=== PATIENT | male | born 1950 | race Caucasian/White ===

== ENCOUNTER 2016-10-31 20:29 | Inpatient (IN) | payer OTHER ==
[~2016-10-31] VITALS: Ht 177.8 cm; Wt 90.5 kg
[2016-10-31 21:02] LABS: EOSINOPHIL (%) 0 % (0-5); HEMATOCRIT 29.9 % (38.0-50.0); IMMATURE GRANULOCYTE (%) 0.4 % (0.0-0.7); INSTRUMENT ABS NEUTROPHIL CT 8.7 K/uL; LYMPHOCYTE COUNT 0.3 K/uL (1.0-2.8); MCH 27.4 PG (29.0-34.0); MCHC 30.1 G/DL (30.0-36.0); MCV 90.9 FL (86-99); MEAN PLAT.VOLUME 11.9 uM^3 (9.0-12.4); MONOCYTE (%) 10.1 % (3-12); NEUTROPHIL (%) 86.8 % (45-76); NEUTROPHIL COUNT 8.7 K/uL (1.8-6.4); PLATELET COUNT 216 K/uL (156-360); RBC DIS.WIDTH-CV 13.9 % (11.8-14.6); RBC DIS.WIDTH-SD 46.8 % (39-53); RED BLOOD COUNT 3.29 M/uL (4.00-5.50); WHITE BLOOD COUNT 10.1 K/uL (4.1-10.2)
[2016-10-31 21:08] LABS: CARBON DIOXIDE (BICARBONATE) 22.4 MEQ/L (20-31)
[2016-10-31 21:14] LABS: CHLORIDE 95 mEq/L (99-109); POTASSIUM 3.7 mEq/L (3.7-5.4); SODIUM 132 mEq/L (136-147)
[2016-10-31 21:17] LABS: ANION GAP 18 MEQ/L (2-14)
[2016-10-31 21:18] LABS: TOTAL BILIRUBIN 0.4 mg/dL (0.0-1.0)
[2016-10-31 21:19] LABS: ALKALINE PHOSPHATASE 119 IU/L (3-129)
[2016-10-31 21:20] LABS: GFR ESTIMATE (CALCULATED) 9 mL/min/
[2016-10-31 21:21] LABS: UREA NITROGEN (BUN) 81 mg/dL (9-23)
[2016-10-31 21:31] LABS: TROP-I INTERPRETATION POSITIVE
[2016-10-31 21:48] LABS: GLUCOSE 1280 mg/dL (70-99)
[2016-10-31] MEDS ORDERED: NOVOLIN,HU100 UNITS1 SC (22:25)
[2016-10-31] MEDS ORDERED: LANTUS 10100 UNITS/ SC (22:26)
[2016-10-31 22:33] LABS: Estimated Average Glucose 361 mg/dL (70-123); HEMOGLOBIN A1c (GLYCOHEMOGLOB) 14.2 % HGB (Below 5.7)
[2016-10-31 23:15] VITALS: BP 139/77
[2016-10-31 23:30] VITALS: BP 125/56
[2016-11-01] VITALS (17 sets, daily range): BP systolic 94–161; BP diastolic 64–104
[2016-11-01 00:25] LABS: CHLORIDE 100 mEq/L (99-109); POTASSIUM 3.6 mEq/L (3.7-5.4); SODIUM 136 mEq/L (136-147)
[2016-11-01 00:28] LABS: ANION GAP 17 MEQ/L (2-14)
[2016-11-01 00:31] LABS: GFR ESTIMATE (CALCULATED) 10 mL/min/; UREA NITROGEN (BUN) 80 mg/dL (9-23)
[2016-11-01 00:34] LABS: INFLUENZA A VIRAL ANTIGEN NEGATIVE; INFLUENZA B VIRAL ANTIGEN NEGATIVE
[2016-11-01 00:41] LABS: CARBON DIOXIDE (BICARBONATE) 23.1 MEQ/L (20-31)
[2016-11-01 00:56] LABS: HEMATOCRIT 27.2 % (38.0-50.0); MCH 27.7 PG (29.0-34.0); MCHC 31.3 G/DL (30.0-36.0); MCV 88.6 FL (86-99); MEAN PLAT.VOLUME 11.7 uM^3 (9.0-12.4); PLATELET COUNT 178 K/uL (156-360); RBC DIS.WIDTH-CV 13.9 % (11.8-14.6); RBC DIS.WIDTH-SD 44.9 % (39-53); RED BLOOD COUNT 3.07 M/uL (4.00-5.50); WHITE BLOOD COUNT 10.4 K/uL (4.1-10.2)
[2016-11-01 01:18] LABS: GLUCOSE 1152 mg/dL (70-99)
[2016-11-01 01:30] LABS: METH RESISTANT S AUREUS PCR NEGATIVE (NEGATIVE)
[2016-11-01 01:31] LABS: PROBE CHECK PASS; SPECIMEN PROCESSING CONTROL PASS
[2016-11-01 01:32] LABS: CHLORIDE 102 mEq/L (99-109); POTASSIUM 3.1 mEq/L (3.7-5.4); SODIUM 137 mEq/L (136-147)
[2016-11-01 01:36] LABS: ANION GAP 17 MEQ/L (2-14)
[2016-11-01 01:38] LABS: ALKALINE PHOSPHATASE 107 IU/L (3-129)
[2016-11-01 01:39] LABS: GFR ESTIMATE (CALCULATED) 10 mL/min/; TOTAL CK 2163 IU/L (1-294)
[2016-11-01 01:40] LABS: UREA NITROGEN (BUN) 79 mg/dL (9-23)
[2016-11-01 01:47] LABS: CK-MB 13.4 ng/mL (0.0-4.9)
[2016-11-01 01:57] LABS: INTER. NORMALIZED RATIO 1.3; PROTHROMBIN TIME 13.1 (9.2-11.2); PTT 27.8 (25-32)
[2016-11-01 02:16] LABS: CREATINE KINASE 2163 IU/L (1-294)
[2016-11-01 02:17] LABS: GLUCOSE 1029 mg/dL (70-99); TOTAL BILIRUBIN 0.3 mg/dL (0.0-1.0)
[2016-11-01 03:53] LABS: AMPHETAMINES QUANT VALUE 0 NG/ML; BARBITUATES QUANT VALUE 0 NG/ML; BENZODIAZEPINES QUANT VALUE 0 NG/ML; BENZODIAZEPINES, URINE SCREEN Negative (200 ng/mL); MARIJUANA QUANT VALUE 0 NG/ML; OPIATES QUANTITATIVE VALUE 0 NG/ML; PHENCYCLIDINE QUANT VALUE 0 NG/ML
[2016-11-01 04:36] LABS: ADD MIUA? YES; BILIRUBIN NEGATIVE; BLOOD LARGE; COLOR YELLOW ((YELLOW)); GLUCOSE (STRIP) >=500; KETONES NEGATIVE; LEUKOCYTES MODERATE; NITRITE NEGATIVE; PROTEIN (STRIP) 30; SPECIFIC GRAVITY 1.011 (1.000-1.030); UROBILINOGEN 0.2 MG/DL (0.2-1.0)
[2016-11-01 04:51] LABS: BACTERIA RARE /HPF; EPITHELIAL CELLS RARE /HPF; MUCUS TRACE /LPF; UCUL ADDED? NO
[2016-11-01 05:59] LABS: ANION GAP 17 MEQ/L (2-14); CHLORIDE 106 MEQ/L (99-109); GFR ESTIMATE (CALCULATED) 12 mL/min/; SAMPLE HEMOLYSIS CHECK 0; SAMPLE ICTERIC CHECK 0; SAMPLE LIPEMIA CHECK 0; UREA NITROGEN (BUN) 69 mg/dL (9-23)
[2016-11-01 06:00] LABS: GLUCOSE 470 mg/dL (70-99); SODIUM 145 MEQ/L (136-147)
[2016-11-01 06:21] LABS: POINT-OF-CARE METER ID UU13113731
[2016-11-01 06:49] LABS: POINT-OF-CARE METER ID UU14174217
[2016-11-01 07:16] LABS: CK-MB 13.6 ng/mL (0.0-4.9)
[2016-11-01 07:19] LABS: TROP-I INTERPRETATION POSITIVE; TROPONIN-I 5.21 ng/mL (0.0-0.30)
[2016-11-01 07:37] LABS: TOTAL CK 1796 IU/L (1-294)
[2016-11-01 07:39] LABS: CREATINE KINASE 1796 IU/L (1-294)
[2016-11-01 07:47] LABS: POINT-OF-CARE METER ID UU13113803; POINT-OF-CARE USER ID 606021424
[2016-11-01 08:19] LABS: ANION GAP 15 MEQ/L (2-14); CHLORIDE 109 MEQ/L (99-109); GFR ESTIMATE (CALCULATED) 12 mL/min/; POTASSIUM 3.5 MEQ/L (3.7-5.4); SAMPLE HEMOLYSIS CHECK 0; SAMPLE ICTERIC CHECK 0; SAMPLE LIPEMIA CHECK 0; SODIUM 148 MEQ/L (136-147); UREA NITROGEN (BUN) 65 mg/dL (9-23)
[2016-11-01 08:26] LABS: POINT-OF-CARE METER ID UU14174217
[2016-11-01 08:27] LABS: GLUCOSE 145 mg/dL (70-99)
[2016-11-01 09:30] LABS: POINT-OF-CARE METER ID UU14174217
[2016-11-01 10:43] LABS: POINT-OF-CARE METER ID UU14174217
[2016-11-01 11:09] LABS: POINT-OF-CARE METER ID UU14174217
[2016-11-01 12:13] LABS: POINT-OF-CARE METER ID UU14174217
[2016-11-01 13:01] LABS: ANION GAP 13 MEQ/L (2-14); CHLORIDE 111 MEQ/L (99-109); POTASSIUM 3.6 MEQ/L (3.7-5.4); SAMPLE HEMOLYSIS CHECK 0; SAMPLE ICTERIC CHECK 0; SAMPLE LIPEMIA CHECK 0; SODIUM 147 MEQ/L (136-147)
[2016-11-01 13:07] LABS: GFR ESTIMATE (CALCULATED) 13 mL/min/; GLUCOSE 113 mg/dL (70-99); UREA NITROGEN (BUN) 66 mg/dL (9-23)
[2016-11-01 13:08] LABS: CK-MB 9.4 ng/mL (0.0-4.9)
[2016-11-01 13:10] LABS: TROP-I INTERPRETATION POSITIVE; TROPONIN-I 6.74 ng/mL (0.0-0.30)
[2016-11-01 13:29] LABS: POINT-OF-CARE METER ID UU14174217
[2016-11-01 13:53] LABS: CREATINE KINASE 1919 IU/L (1-294); TOTAL CK 1919 IU/L (1-294)
[2016-11-01 14:42] LABS: POINT-OF-CARE METER ID UU14174217
[2016-11-01 15:05] LABS: POINT-OF-CARE METER ID UU14162636; POINT-OF-CARE USER ID 606021424
[2016-11-01 16:20] LABS: ANION GAP 14 MEQ/L (2-14); CHLORIDE 110 MEQ/L (99-109); GFR ESTIMATE (CALCULATED) 13 mL/min/; POTASSIUM 3.4 MEQ/L (3.7-5.4); SAMPLE HEMOLYSIS CHECK 0; SAMPLE ICTERIC CHECK 0; SAMPLE LIPEMIA CHECK 0; SODIUM 145 MEQ/L (136-147); UREA NITROGEN (BUN) 65 mg/dL (9-23)
[2016-11-01 16:23] LABS: GLUCOSE 185 mg/dL (70-99)
[2016-11-01 16:34] LABS: POINT-OF-CARE METER ID UU14174217
[2016-11-01 17:59] LABS: POINT-OF-CARE METER ID UU14162636; POINT-OF-CARE USER ID 606021424
[2016-11-01 18:26] LABS: TROP-I INTERPRETATION POSITIVE; TROPONIN-I 5.76 ng/mL (0.0-0.30)
[2016-11-01 18:28] LABS: TOTAL CK 1439 IU/L (1-294)
[2016-11-01 18:29] LABS: CREATINE KINASE 1439 IU/L (1-294)
[2016-11-01 18:34] LABS: POINT-OF-CARE METER ID UU13113803; POINT-OF-CARE USER ID 606021424
[2016-11-01 19:03] LABS: MCH 27.7 PG (29.0-34.0); MCHC 32.8 G/DL (30.0-36.0); MCV 84.5 FL (86-99); MEAN PLAT.VOLUME 11.1 uM^3 (9.0-12.4); PLATELET COUNT 149 K/uL (156-360); RBC DIS.WIDTH-CV 13.6 % (11.8-14.6); RBC DIS.WIDTH-SD 42.3 % (39-53); RED BLOOD COUNT 2.96 M/uL (4.00-5.50); WHITE BLOOD COUNT 9.7 K/uL (4.1-10.2)
[2016-11-01 19:56] LABS: POINT-OF-CARE METER ID UU13113803
[2016-11-01 20:41] LABS: POINT-OF-CARE METER ID UU13113803
[2016-11-01 20:46] LABS: ANION GAP 12 MEQ/L (2-14); CHLORIDE 110 MEQ/L (99-109); GFR ESTIMATE (CALCULATED) 14 mL/min/; GLUCOSE 167 mg/dL (70-99); POTASSIUM 3.2 MEQ/L (3.7-5.4); SAMPLE HEMOLYSIS CHECK 0; SAMPLE ICTERIC CHECK 0; SAMPLE LIPEMIA CHECK 0; SODIUM 143 MEQ/L (136-147); UREA NITROGEN (BUN) 60 mg/dL (9-23)
[2016-11-01 21:47] LABS: POINT-OF-CARE METER ID UU13113803
[2016-11-01 22:14] LABS: POINT-OF-CARE METER ID UU13113803
[2016-11-01 23:09] LABS: POINT-OF-CARE METER ID UU13113803
[2016-11-02] VITALS (16 sets, daily range): BP systolic 106–140; BP diastolic 55–87
[2016-11-02 00:10] LABS: POINT-OF-CARE METER ID UU13113803
[2016-11-02 01:11] LABS: POINT-OF-CARE METER ID UU13113803
[2016-11-02 01:46] LABS: CHLORIDE 111 mEq/L (99-109); POTASSIUM 3.5 mEq/L (3.7-5.4); SODIUM 145 mEq/L (136-147)
[2016-11-02 01:48] LABS: GLUCOSE 135 mg/dL (70-99)
[2016-11-02 01:49] LABS: ANION GAP 13 MEQ/L (2-14); MAGNESIUM 1.4 mg/dL (1.3-2.7)
[2016-11-02 01:52] LABS: GFR ESTIMATE (CALCULATED) 13 mL/min/
[2016-11-02 01:53] LABS: UREA NITROGEN (BUN) 58 mg/dL (9-23)
[2016-11-02 01:54] LABS: TOTAL CK 1815 IU/L (1-294)
[2016-11-02 01:56] LABS: CREATINE KINASE 1815 IU/L (1-294); TROP-I INTERPRETATION POSITIVE; TROPONIN-I 6.87 ng/mL (0.0-0.30)
[2016-11-02 01:56] LABS: POINT-OF-CARE METER ID UU13113731
[2016-11-02 02:01] LABS: CK-MB 10.8 ng/mL (0.0-4.9)
[2016-11-02 03:03] LABS: POINT-OF-CARE METER ID UU13113731
[2016-11-02 05:03] LABS: HEMATOCRIT 25.4 % (38.0-50.0); MCH 27.5 PG (29.0-34.0); MCHC 32.7 G/DL (30.0-36.0); MCV 84.1 FL (86-99); MEAN PLAT.VOLUME 11.2 uM^3 (9.0-12.4); PLATELET COUNT 144 K/uL (156-360); RBC DIS.WIDTH-CV 13.5 % (11.8-14.6); RBC DIS.WIDTH-SD 41.3 % (39-53); RED BLOOD COUNT 3.02 M/uL (4.00-5.50); WHITE BLOOD COUNT 10.4 K/uL (4.1-10.2)
[2016-11-02 05:19] LABS: MAGNESIUM 1.5 mg/dL (1.3-2.7)
[2016-11-02 05:26] LABS: TOTAL CK 1526 IU/L (1-294)
[2016-11-02 05:27] LABS: CREATINE KINASE 1526 IU/L (1-294)
[2016-11-02 05:29] LABS: TROP-I INTERPRETATION POSITIVE; TROPONIN-I 6.85 ng/mL (0.0-0.30)
[2016-11-02 05:36] LABS: CK-MB 9.5 ng/mL (0.0-4.9)
[2016-11-02 05:56] LABS: CHLORIDE 113 mEq/L (99-109); POTASSIUM 3.5 mEq/L (3.7-5.4); SODIUM 145 mEq/L (136-147)
[2016-11-02 05:58] LABS: GLUCOSE 183 mg/dL (70-99)
[2016-11-02 05:59] LABS: ANION GAP 13 MEQ/L (2-14)
[2016-11-02 06:02] LABS: GFR ESTIMATE (CALCULATED) 14 mL/min/; UREA NITROGEN (BUN) 56 mg/dL (9-23)
[2016-11-02 06:06] LABS: POINT-OF-CARE METER ID UU13113731
[2016-11-02 06:30] LABS: HDL CHOLESTEROL 31 MG/DL (Desirable>=40); LDL CHOLESTEROL 48 mg/dL (Desirable<100); NON-HDL CHOLESTEROL 68 mg/dL (Desirable<160); SAMPLE HEMOLYSIS CHECK 0; SAMPLE ICTERIC CHECK 0; SAMPLE LIPEMIA CHECK 0; TOTAL CHOLESTEROL 99 mg/dL (Desirable<200); TRIGLYCERIDES 98 MG/DL (Normal: <150)
[2016-11-02 09:54] LABS: POINT-OF-CARE METER ID UU13113731
[2016-11-02 14:00] LABS: POINT-OF-CARE METER ID UU13113731
[2016-11-02 18:07] LABS: POINT-OF-CARE METER ID UU13113731
[2016-11-02 21:40] LABS: POINT-OF-CARE METER ID UU13113731
[2016-11-03] VITALS: BP 114/60
[2016-11-03 01:04] LABS: CHLORIDE 110 mEq/L (99-109); POTASSIUM 3.5 mEq/L (3.7-5.4); SODIUM 141 mEq/L (136-147)
[2016-11-03 01:06] LABS: GLUCOSE 274 mg/dL (70-99)
[2016-11-03 01:07] LABS: ANION GAP 10 MEQ/L (2-14)
[2016-11-03 01:10] LABS: GFR ESTIMATE (CALCULATED) 16 mL/min/
[2016-11-03 01:11] LABS: UREA NITROGEN (BUN) 53 mg/dL (9-23)
[2016-11-03 03:23] LABS: POINT-OF-CARE METER ID UU13113731
[2016-11-03 04:00] VITALS: BP 119/61
[2016-11-03 08:00] VITALS: BP 119/61
[2016-11-03 10:09] LABS: MAGNESIUM 1.7 mg/dL (1.3-2.7)
[2016-11-03 11:27] LABS: IRON 31 MCG/DL (35-150)
[2016-11-03 11:35] LABS: TROP-I INTERPRETATION POSITIVE; TROPONIN-I 3.91 ng/mL (0.0-0.30)
[2016-11-03 11:45] LABS: FERRITIN 393 NG/ML (22-322)
[2016-11-03 12:00] VITALS: BP 121/61
[2016-11-03 16:00] VITALS: BP 124/60
[2016-11-03 17:43] LABS: POINT-OF-CARE METER ID UU14174217
[2016-11-03 20:00] VITALS: BP 114/53
[2016-11-03 22:21] LABS: POINT-OF-CARE METER ID UU14162636
[2016-11-04] VITALS: BP 107/65
[2016-11-04 04:00] VITALS: BP 119/56
[2016-11-04 07:14] LABS: ANION GAP 7 MEQ/L (2-14); CHLORIDE 113 MEQ/L (99-109); GFR ESTIMATE (CALCULATED) 20 mL/min/; POTASSIUM 3.5 MEQ/L (3.7-5.4); SAMPLE HEMOLYSIS CHECK 0; SAMPLE ICTERIC CHECK 0; SAMPLE LIPEMIA CHECK 0; SODIUM 143 MEQ/L (136-147); UREA NITROGEN (BUN) 45 mg/dL (9-23)
[2016-11-04 07:20] LABS: GLUCOSE 64 mg/dL (70-99)
[2016-11-04 08:00] VITALS: BP 131/66
[2016-11-04 08:27] LABS: CREATINE KINASE 221 IU/L (1-294)
[2016-11-04 09:03] LABS: POINT-OF-CARE METER ID UU13113803
[2016-11-04 12:55] VITALS: BP 135/75
[2016-11-04 15:21] VITALS: BP 128/74
[2016-11-04 19:40] VITALS: BP 134/69
[2016-11-05 00:04] VITALS: BP 138/67
[2016-11-05 04:07] VITALS: BP 133/71
[2016-11-05 06:55] LABS: EOSINOPHIL COUNT 0.3 K/uL (0-0.3); HEMATOCRIT 24.3 % (38.0-50.0); IMMATURE GRANULOCYTE (%) 0.4 % (0.0-0.7); INSTRUMENT ABS NEUTROPHIL CT 5.6 K/uL; MCH 27.8 PG (29.0-34.0); MCHC 31.7 G/DL (30.0-36.0); MCV 87.7 FL (86-99); MEAN PLAT.VOLUME 11.5 uM^3 (9.0-12.4); MONOCYTE (%) 10.9 % (3-12); MONOCYTE COUNT 0.8 K/uL (0-0.8); NEUTROPHIL COUNT 5.6 K/uL (1.8-6.4); PLATELET COUNT 120 K/uL (156-360); RBC DIS.WIDTH-CV 13.7 % (11.8-14.6); RBC DIS.WIDTH-SD 43.5 % (39-53); RED BLOOD COUNT 2.77 M/uL (4.00-5.50); WHITE BLOOD COUNT 7.7 K/uL (4.1-10.2)
[2016-11-05 07:20] LABS: ANION GAP 8 MEQ/L (2-14); CHLORIDE 109 MEQ/L (99-109); GFR ESTIMATE (CALCULATED) 23 mL/min/; GLUCOSE 43 mg/dL (70-99); POTASSIUM 3.6 MEQ/L (3.7-5.4); SAMPLE HEMOLYSIS CHECK 0; SAMPLE ICTERIC CHECK 0; SAMPLE LIPEMIA CHECK 0; SODIUM 142 MEQ/L (136-147); UREA NITROGEN (BUN) 41 mg/dL (9-23)
[2016-11-05 07:34] LABS: ALKALINE PHOSPHATASE 80 IU/L (3-129); ANION GAP 9 MEQ/L (2-14); CHLORIDE 108 MEQ/L (99-109); GFR ESTIMATE (CALCULATED) 24 mL/min/; GLUCOSE 42 mg/dL (70-99); POTASSIUM 3.5 MEQ/L (3.7-5.4); SAMPLE HEMOLYSIS CHECK 0; SAMPLE ICTERIC CHECK 0; SAMPLE LIPEMIA CHECK 0; SODIUM 142 MEQ/L (136-147); TOTAL BILIRUBIN 0.3 MG/DL (0.0-1.0); UREA NITROGEN (BUN) 39 mg/dL (9-23)
[2016-11-05 07:37] VITALS: BP 149/73
[2016-11-05 11:16] VITALS: BP 142/69
[2016-11-05 12:36] LABS: POINT-OF-CARE METER ID UU14188625
[2016-11-05 16:48] LABS: POINT-OF-CARE METER ID UU14188625
[2016-11-05 18:52] LABS: HEMATOCRIT 27.6 % (38.0-50.0); MCH 27.8 PG (29.0-34.0); MCHC 31.9 G/DL (30.0-36.0); MCV 87.3 FL (86-99); MEAN PLAT.VOLUME 11.4 uM^3 (9.0-12.4); PLATELET COUNT 152 K/uL (156-360); RBC DIS.WIDTH-CV 13.5 % (11.8-14.6); RBC DIS.WIDTH-SD 42.8 % (39-53); RED BLOOD COUNT 3.16 M/uL (4.00-5.50); WHITE BLOOD COUNT 8.8 K/uL (4.1-10.2)
[2016-11-05 19:44] VITALS: BP 128/61
[2016-11-06] VITALS: BP 129/75
[2016-11-06 04:00] VITALS: BP 132/62
[2016-11-06 07:07] LABS: EOSINOPHIL (%) 4.3 % (0-5); EOSINOPHIL COUNT 0.3 K/uL (0-0.3); HEMATOCRIT 23.9 % (38.0-50.0); IMMATURE GRANULOCYTE (%) 0.5 % (0.0-0.7); INSTRUMENT ABS NEUTROPHIL CT 5.7 K/uL; MCH 27.6 PG (29.0-34.0); MCHC 31.8 G/DL (30.0-36.0); MCV 86.9 FL (86-99); MEAN PLAT.VOLUME 11.3 uM^3 (9.0-12.4); MONOCYTE (%) 10.2 % (3-12); MONOCYTE COUNT 0.8 K/uL (0-0.8); NEUTROPHIL (%) 72.1 % (45-76); NEUTROPHIL COUNT 5.7 K/uL (1.8-6.4); PLATELET COUNT 134 K/uL (156-360); RBC DIS.WIDTH-CV 13.4 % (11.8-14.6); RBC DIS.WIDTH-SD 42.5 % (39-53); RED BLOOD COUNT 2.75 M/uL (4.00-5.50); WHITE BLOOD COUNT 7.8 K/uL (4.1-10.2)
[2016-11-06 08:10] VITALS: BP 126/72
[2016-11-06 08:10] LABS: POINT-OF-CARE METER ID UU14174225
[2016-11-06 08:41] LABS: GFR ESTIMATE (CALCULATED) 28 mL/min/; SAMPLE HEMOLYSIS CHECK 0; SAMPLE ICTERIC CHECK 0; SAMPLE LIPEMIA CHECK 0; UREA NITROGEN (BUN) 36 mg/dL (9-23)
[2016-11-06 10:43] LABS: ANION GAP 9 MEQ/L (2-14); CHLORIDE 107 MEQ/L (99-109); POTASSIUM 4.2 MEQ/L (3.7-5.4); SODIUM 141 MEQ/L (136-147)
[2016-11-06 10:49] LABS: GLUCOSE 74 mg/dL (70-99)
[2016-11-06 11:58] VITALS: BP 124/62
[2016-11-06 11:58] LABS: POINT-OF-CARE METER ID UU14188625
[2016-11-06 16:42] VITALS: BP 118/54
[2016-11-06 19:38] VITALS: BP 132/70
[2016-11-07 00:20] VITALS: BP 146/71
[2016-11-07 04:07] VITALS: BP 143/72
[2016-11-07 07:11] LABS: EOSINOPHIL (%) 4.5 % (0-5); EOSINOPHIL COUNT 0.3 K/uL (0-0.3); HEMATOCRIT 25.7 % (38.0-50.0); IMMATURE GRANULOCYTE (%) 0.7 % (0.0-0.7); IMMATURE GRANULOCYTE COUNT 0.1 K/uL; INSTRUMENT ABS NEUTROPHIL CT 5.2 K/uL; MCH 26.7 PG (29.0-34.0); MCV 89.2 FL (86-99); MEAN PLAT.VOLUME 11.8 uM^3 (9.0-12.4); MONOCYTE (%) 10.2 % (3-12); MONOCYTE COUNT 0.8 K/uL (0-0.8); NEUTROPHIL (%) 70.6 % (45-76); NEUTROPHIL COUNT 5.2 K/uL (1.8-6.4); PLATELET COUNT 155 K/uL (156-360); RBC DIS.WIDTH-CV 13.5 % (11.8-14.6); RBC DIS.WIDTH-SD 43.8 % (39-53); RED BLOOD COUNT 2.88 M/uL (4.00-5.50); WHITE BLOOD COUNT 7.4 K/uL (4.1-10.2)
[2016-11-07 07:34] LABS: ANION GAP 9 MEQ/L (2-14); CHLORIDE 105 MEQ/L (99-109); GFR ESTIMATE (CALCULATED) 30 mL/min/; POTASSIUM 4.8 MEQ/L (3.7-5.4); SAMPLE HEMOLYSIS CHECK 0; SAMPLE ICTERIC CHECK 0; SAMPLE LIPEMIA CHECK 0; SODIUM 141 MEQ/L (136-147); UREA NITROGEN (BUN) 41 mg/dL (9-23)
[2016-11-07 07:36] LABS: GLUCOSE 114 mg/dL (70-99)
[2016-11-07 07:45] VITALS: BP 126/74
[2016-11-07 11:55] VITALS: BP 129/72
[2016-11-07 15:33] LABS: POINT-OF-CARE METER ID UU13113694
[2016-11-07 17:02] LABS: POINT-OF-CARE METER ID UU13113819; POINT-OF-CARE USER ID ADMSLT55
[2016-11-07 20:00] VITALS: BP 135/71
[2016-11-07 21:41] LABS: POINT-OF-CARE METER ID UU14174225
[2016-11-08] VITALS: BP 124/68
[2016-11-08 04:00] VITALS: BP 103/57
[2016-11-08 06:48] LABS: EOSINOPHIL (%) 3.9 % (0-5); EOSINOPHIL COUNT 0.3 K/uL (0-0.3); HEMATOCRIT 24.6 % (38.0-50.0); IMMATURE GRANULOCYTE (%) 0.9 % (0.0-0.7); IMMATURE GRANULOCYTE COUNT 0.1 K/uL; LYMPHOCYTE COUNT 0.8 K/uL (1.0-2.8); MCH 27.2 PG (29.0-34.0); MCHC 30.1 G/DL (30.0-36.0); MCV 90.4 FL (86-99); MEAN PLAT.VOLUME 11.4 uM^3 (9.0-12.4); MONOCYTE (%) 10.1 % (3-12); MONOCYTE COUNT 0.7 K/uL (0-0.8); NEUTROPHIL (%) 72.8 % (45-76); PLATELET COUNT 154 K/uL (156-360); RBC DIS.WIDTH-CV 13.8 % (11.8-14.6); RBC DIS.WIDTH-SD 44.5 % (39-53); RED BLOOD COUNT 2.72 M/uL (4.00-5.50); WHITE BLOOD COUNT 6.8 K/uL (4.1-10.2)
[2016-11-08 07:12] LABS: ANION GAP 8 MEQ/L (2-14); CHLORIDE 106 MEQ/L (99-109); GFR ESTIMATE (CALCULATED) 34 mL/min/; GLUCOSE 122 mg/dL (70-99); POTASSIUM 4.5 MEQ/L (3.7-5.4); SAMPLE HEMOLYSIS CHECK 0; SAMPLE ICTERIC CHECK 0; SAMPLE LIPEMIA CHECK 0; SODIUM 141 MEQ/L (136-147); UREA NITROGEN (BUN) 35 mg/dL (9-23)
[2016-11-08 08:00] VITALS: BP 124/69
[2016-11-08 08:32] LABS: POINT-OF-CARE METER ID UU14174217
[2016-11-08 08:32] LABS: POINT-OF-CARE METER ID UU14174217
[2016-11-08 08:32] LABS: POINT-OF-CARE METER ID UU14174217
[2016-11-08 12:06] VITALS: BP 135/75
[2016-11-08 12:44] LABS: POINT-OF-CARE METER ID UU14174225
[2016-11-08 16:03] VITALS: BP 125/65
[2016-11-08 17:10] LABS: POINT-OF-CARE METER ID UU14174225
[2016-11-08 20:00] VITALS: BP 139/68
[2016-11-09] VITALS: BP 114/53
[2016-11-09 07:44] VITALS: BP 133/62
[2016-11-09 08:02] LABS: EOSINOPHIL (%) 2.8 % (0-5); EOSINOPHIL COUNT 0.3 K/uL (0-0.3); IMMATURE GRANULOCYTE (%) 0.5 % (0.0-0.7); IMMATURE GRANULOCYTE COUNT 0.1 K/uL; INSTRUMENT ABS NEUTROPHIL CT 8.2 K/uL; LYMPHOCYTE COUNT 0.7 K/uL (1.0-2.8); MCH 27.6 PG (29.0-34.0); MCHC 30.4 G/DL (30.0-36.0); MCV 90.9 FL (86-99); MEAN PLAT.VOLUME 11.2 uM^3 (9.0-12.4); MONOCYTE (%) 7.5 % (3-12); MONOCYTE COUNT 0.8 K/uL (0-0.8); NEUTROPHIL (%) 82.4 % (45-76); NEUTROPHIL COUNT 8.2 K/uL (1.8-6.4); PLATELET COUNT 197 K/uL (156-360); RBC DIS.WIDTH-CV 13.7 % (11.8-14.6); RBC DIS.WIDTH-SD 44.5 % (39-53); RED BLOOD COUNT 2.75 M/uL (4.00-5.50)
[2016-11-09 08:08] LABS: WHITE BLOOD COUNT 9.9 K/uL (4.1-10.2)
[2016-11-09 08:17] LABS: ANION GAP 9 MEQ/L (2-14); CHLORIDE 104 MEQ/L (99-109); GFR ESTIMATE (CALCULATED) 30 mL/min/; GLUCOSE 90 mg/dL (70-99); POTASSIUM 5.3 MEQ/L (3.7-5.4); SAMPLE HEMOLYSIS CHECK 0; SAMPLE ICTERIC CHECK 0; SAMPLE LIPEMIA CHECK 0; SODIUM 139 MEQ/L (136-147); UREA NITROGEN (BUN) 35 mg/dL (9-23)
[2016-11-09 11:18] VITALS: BP 120/64
[2016-11-09 15:29] VITALS: BP 113/56
[2016-11-09 16:50] LABS: POINT-OF-CARE METER ID UU14174225
[2016-11-10] VITALS (7 sets, daily range): BP systolic 113–136; BP diastolic 56–70
[2016-11-10 07:24] LABS: POINT-OF-CARE METER ID UU14174225
[2016-11-10 08:11] LABS: POINT-OF-CARE METER ID UU14174225
[2016-11-10 10:34] LABS: HEMATOCRIT 24.8 % (38.0-50.0); MCH 27.6 PG (29.0-34.0); MCHC 29.8 G/DL (30.0-36.0); MCV 92.5 FL (86-99); MEAN PLAT.VOLUME 11.4 uM^3 (9.0-12.4); PLATELET COUNT 193 K/uL (156-360); RBC DIS.WIDTH-CV 13.8 % (11.8-14.6); RBC DIS.WIDTH-SD 45.8 % (39-53); RED BLOOD COUNT 2.68 M/uL (4.00-5.50); WHITE BLOOD COUNT 6.3 K/uL (4.1-10.2)
[2016-11-10 10:43] LABS: ANION GAP 10 MEQ/L (2-14); CHLORIDE 105 MEQ/L (99-109); GFR ESTIMATE (CALCULATED) 30 mL/min/; POTASSIUM 5.3 MEQ/L (3.7-5.4); SAMPLE HEMOLYSIS CHECK 0; SAMPLE ICTERIC CHECK 0; SAMPLE LIPEMIA CHECK 0; SODIUM 139 MEQ/L (136-147); UREA NITROGEN (BUN) 45 mg/dL (9-23)
[2016-11-10 10:48] LABS: GLUCOSE 147 mg/dL (70-99)
[2016-11-10 16:57] LABS: POINT-OF-CARE METER ID UU14174225
[2016-11-11 00:15] VITALS: BP 109/67
[2016-11-11 07:23] LABS: ANION GAP 8 MEQ/L (2-14); CHLORIDE 108 MEQ/L (99-109); GFR ESTIMATE (CALCULATED) 34 mL/min/; POTASSIUM 4.7 MEQ/L (3.7-5.4); SAMPLE HEMOLYSIS CHECK 0; SAMPLE ICTERIC CHECK 0; SAMPLE LIPEMIA CHECK 0; SODIUM 143 MEQ/L (136-147); UREA NITROGEN (BUN) 37 mg/dL (9-23)
[2016-11-11 07:26] LABS: GLUCOSE 40 mg/dL (70-99)
[2016-11-11 07:28] LABS: BASOPHIL COUNT 0.1 K/uL (0-0.1); EOSINOPHIL (%) 4.2 % (0-5); EOSINOPHIL COUNT 0.4 K/uL (0-0.3); HEMATOCRIT 30.5 % (38.0-50.0); IMMATURE GRANULOCYTE (%) 0.2 % (0.0-0.7); INSTRUMENT ABS NEUTROPHIL CT 5.9 K/uL; LYMPHOCYTE COUNT 1.2 K/uL (1.0-2.8); MCH 28.1 PG (29.0-34.0); MCHC 30.8 G/DL (30.0-36.0); MCV 91.3 FL (86-99); MONOCYTE (%) 8.5 % (3-12); MONOCYTE COUNT 0.7 K/uL (0-0.8); NEUTROPHIL (%) 72.1 % (45-76); NEUTROPHIL COUNT 5.9 K/uL (1.8-6.4); PLATELET COUNT 270 K/uL (156-360); RBC DIS.WIDTH-CV 13.9 % (11.8-14.6); RBC DIS.WIDTH-SD 45.9 % (39-53); RED BLOOD COUNT 3.34 M/uL (4.00-5.50); WHITE BLOOD COUNT 8.2 K/uL (4.1-10.2)
[2016-11-11 07:50] VITALS: BP 142/69
[2016-11-11] MEDS ORDERED: FERROUS SULFAT325 MG PO (13:19)
[2016-11-11] MEDS ORDERED: LOPRESSOR25 MG PO (13:19)
[2016-11-11] MEDS ORDERED: NOVOLOG PE100 UNITS/ SC (13:19)
[2016-11-11] MEDS ORDERED: ASPIR-LOW81 MG PO (13:19)
[2016-11-11] MEDS ORDERED: LEVEMIR100 UNIT/2 SC (13:19)
[2016-11-11] MEDS ORDERED: FOLIC ACID1 MG PO (13:19)
[2016-11-11] MEDS ORDERED: GABAPENTIN100 MG PO (13:19)
[2016-11-11] MEDS ORDERED: PANTOPRAZOLE SO40 MG PO (13:19)
[2016-11-11] MEDS ORDERED: ATORVASTATIN CA40 MG PO (13:19)
[2016-11-11 15:40] LABS: POINT-OF-CARE METER ID UU13113694
[2016-11-11 15:40] LABS: POINT-OF-CARE METER ID UU13113694
[2016-11-11 22:26] LABS: POINT-OF-CARE METER ID UU14174225
[2016-11-12 00:08] VITALS: BP 143/65
[2016-11-12 07:32] VITALS: BP 141/67
[2016-11-12 08:12] LABS: POINT-OF-CARE METER ID UU14174225
[2016-11-12 11:55] LABS: POINT-OF-CARE METER ID UU14188625
== END 2016-11-12 14:03 | DRG 637 ==
LOC: EME → EDBD 20:29 → EME 20:29 → 4WEST 22:20 → 5SOUTH 22:20 → EDOF 22:20 → 4WEST 23:06 → 5SOUTH 11-04 12:45
PROVIDERS: Emergency Medicine; Hospitalist; Internal Medicine; Internal Medicine Gastroenterology; Internal Medicine Nephrology; Obstetrics & Gynecology
DX: E13.10 Other specified diabetes mellitus with ketoacidosis without coma (principal); N17.9 Acute kidney failure, unspecified; J69.0 Pneumonitis due to inhalation of food and vomit; I50.21 Acute systolic (congestive) heart failure; I21.4 Non-ST elevation (NSTEMI) myocardial infarction; N13.6 Pyonephrosis; M62.82 Rhabdomyolysis; K92.1 Melena; E87.6 Hypokalemia; Z53.09 Procedure and treatment not carried out because of other contraindication; R40.4 Transient alteration of awareness; I48.0 Paroxysmal atrial fibrillation; I10 Essential (primary) hypertension; E13.40 Other specified diabetes mellitus with diabetic neuropathy, unspecified; E13.69 Other specified diabetes mellitus with other specified complication; R13.19 Other dysphagia; D50.9 Iron deficiency anemia, unspecified; E83.39 Other disorders of phosphorus metabolism; N32.0 Bladder-neck obstruction; N40.1 Benign prostatic hyperplasia with lower urinary tract symptoms; R33.9 Retention of urine, unspecified; K25.9 Gastric ulcer, unspecified as acute or chronic, without hemorrhage or perforation; K26.9 Duodenal ulcer, unspecified as acute or chronic, without hemorrhage or perforation; K29.60 Other gastritis without bleeding; F31.9 Bipolar disorder, unspecified; E66.9 Obesity, unspecified; Z68.28 Body mass index [BMI] 28.0-28.9, adult; Z23 Encounter for immunization; Z91.19 Patient's noncompliance with other medical treatment and regimen; Z79.4 Long term (current) use of insulin; Z88.0 Allergy status to penicillin
CPT/HCPCS: 70450; 71010; 71250; 74176; 74230; 76770; 80048; 80048 91; 80053; 80061; 80069; 80306 90; 81003; 82010; 82271; 82272; 82550; 82550 91; 82553; 82607; 82728; 82746; 82803; 82948; 83036; 83540; 83605; 83735; 83874 90; 83880; 84100; 84466; 84484; 85025; 85027; 85610; 85730; 86850; 86900; 86901; 86920; 87040; 87070; 87077; 87086; 87106; 87147; 87186; 87205; 87502; 87641; 88305; 88342 TC; 92526 GN; 92610 GN; 92611 GN; 93005; 93306; 94799; 97530 GO; 99281; 99285; C9113; G0480; J0692; J0881; J1630; J1644; J1815; J2405; J2765; J3475; J3480; J7030; J7042; J7050; J7120; P9016

== ENCOUNTER 2016-11-12 09:54 | Inpatient (IN) | payer OTHER ==
[~2016-11-12] VITALS: Ht 177.8 cm; Wt 94.5 kg
[~2016-11-12 09:54] MED LIST: ASPIR-LOW81 MG PO; ATORVASTATIN CA40 MG PO; FERROUS SULFAT325 MG PO; FOLIC ACID1 MG PO; GABAPENTIN100 MG PO; LANTUS 10100 UNITS/ SC; LEVEMIR100 UNIT/2 SC; LOPRESSOR25 MG PO; NOVOLIN,HU100 UNITS1 SC; NOVOLOG PE100 UNITS/ SC; PANTOPRAZOLE SO40 MG PO
[2016-11-12 14:44] VITALS: BP 119/64
[2016-11-12 16:29] LABS: POINT-OF-CARE METER ID UU14174215
[2016-11-12 21:05] LABS: POINT-OF-CARE METER ID UU14174215; POINT-OF-CARE USER ID 610211320
[2016-11-13 00:05] VITALS: BP 147/72
[2016-11-13 05:23] LABS: HEMATOCRIT 27.3 % (38.0-50.0); MCH 28.3 PG (29.0-34.0); MCHC 30.8 G/DL (30.0-36.0); MCV 91.9 FL (86-99); MEAN PLAT.VOLUME 11.1 uM^3 (9.0-12.4); PLATELET COUNT 262 K/uL (156-360); RBC DIS.WIDTH-CV 13.8 % (11.8-14.6); RBC DIS.WIDTH-SD 45.6 % (39-53); RED BLOOD COUNT 2.97 M/uL (4.00-5.50); WHITE BLOOD COUNT 8.2 K/uL (4.1-10.2)
[2016-11-13 05:32] VITALS: BP 146/70
[2016-11-13 06:01] LABS: ALKALINE PHOSPHATASE 104 IU/L (3-129); ANION GAP 9 MEQ/L (2-14); CHLORIDE 105 MEQ/L (99-109); GFR ESTIMATE (CALCULATED) 29 mL/min/; POTASSIUM 5.3 MEQ/L (3.7-5.4); SAMPLE HEMOLYSIS CHECK 0; SAMPLE ICTERIC CHECK 0; SAMPLE LIPEMIA CHECK 0; SODIUM 139 MEQ/L (136-147); TOTAL BILIRUBIN 0.2 MG/DL (0.0-1.0); UREA NITROGEN (BUN) 37 mg/dL (9-23)
[2016-11-13 06:02] LABS: GLUCOSE 132 mg/dL (70-99)
[2016-11-13 06:53] LABS: POINT-OF-CARE METER ID UU14174215; POINT-OF-CARE USER ID ENVGAF
[2016-11-13 11:24] LABS: POINT-OF-CARE METER ID UU14174215
[2016-11-13 15:17] VITALS: BP 120/62
[2016-11-13 16:22] LABS: POINT-OF-CARE METER ID UU14174215
[2016-11-13 21:33] LABS: POINT-OF-CARE METER ID UU14174215
[2016-11-13 22:00] VITALS: BP 144/68
[2016-11-14 05:45] VITALS: BP 136/65
[2016-11-14 08:00] LABS: POINT-OF-CARE METER ID UU13113720
[2016-11-14 08:46] LABS: POINT-OF-CARE METER ID UU13113720
[2016-11-14 09:30] LABS: POINT-OF-CARE METER ID UU13113720
[2016-11-14 11:19] LABS: POINT-OF-CARE METER ID UU13113720
[2016-11-14 12:06] LABS: POINT-OF-CARE METER ID UU13113720
[2016-11-14 15:36] VITALS: BP 121/80
[2016-11-14 16:51] LABS: POINT-OF-CARE METER ID UU14174215
[2016-11-14 17:04] LABS: POINT-OF-CARE METER ID UU14174215
[2016-11-14 17:42] LABS: POINT-OF-CARE METER ID UU14174215
[2016-11-14 21:52] LABS: POINT-OF-CARE METER ID UU14174215
[2016-11-15 06:09] VITALS: BP 129/60
[2016-11-15 08:12] LABS: POINT-OF-CARE METER ID UU14174215; POINT-OF-CARE USER ID AHSSSJB31
[2016-11-15 12:13] LABS: POINT-OF-CARE METER ID UU14174215; POINT-OF-CARE USER ID AHSSSJB31
[2016-11-15 15:21] VITALS: BP 122/64
[2016-11-15 16:19] LABS: POINT-OF-CARE METER ID UU14174215
[2016-11-15 21:09] LABS: POINT-OF-CARE METER ID UU14174215
[2016-11-16 02:29] LABS: POINT-OF-CARE METER ID UU14174215
[2016-11-16 05:40] VITALS: BP 136/62
[2016-11-16 06:39] LABS: POINT-OF-CARE METER ID UU14174215; POINT-OF-CARE USER ID ENVGAF
[2016-11-16 11:19] LABS: POINT-OF-CARE METER ID UU14174215
[2016-11-16 15:18] VITALS: BP 119/63
[2016-11-16 16:16] LABS: POINT-OF-CARE METER ID UU14174215
[2016-11-16 21:31] LABS: POINT-OF-CARE METER ID UU14174215
[2016-11-17 05:30] VITALS: BP 136/69
[2016-11-17 06:59] LABS: POINT-OF-CARE METER ID UU14174215; POINT-OF-CARE USER ID ENVGAF
[2016-11-17 07:47] LABS: POINT-OF-CARE METER ID UU14174215; POINT-OF-CARE USER ID ENVGAF
[2016-11-17 11:26] LABS: POINT-OF-CARE METER ID UU14174215
[2016-11-17 15:34] VITALS: BP 153/70
[2016-11-17 16:33] LABS: POINT-OF-CARE METER ID UU14174215
[2016-11-17 21:40] LABS: POINT-OF-CARE METER ID UU14174215
[2016-11-17 21:54] VITALS: BP 152/71
[2016-11-18 05:15] LABS: POINT-OF-CARE METER ID UU14174215
[2016-11-18 06:07] VITALS: BP 136/70
[2016-11-18 06:30] LABS: BASOPHIL COUNT 0.1 K/uL (0-0.1); EOSINOPHIL (%) 5.7 % (0-5); EOSINOPHIL COUNT 0.3 K/uL (0-0.3); HEMATOCRIT 26.4 % (38.0-50.0); IMMATURE GRANULOCYTE (%) 0.2 % (0.0-0.7); INSTRUMENT ABS NEUTROPHIL CT 3.4 K/uL; LYMPHOCYTE COUNT 0.9 K/uL (1.0-2.8); MCH 28.1 PG (29.0-34.0); MCHC 31.1 G/DL (30.0-36.0); MCV 90.4 FL (86-99); MEAN PLAT.VOLUME 11.3 uM^3 (9.0-12.4); MONOCYTE (%) 8.4 % (3-12); MONOCYTE COUNT 0.4 K/uL (0-0.8); NEUTROPHIL (%) 65.9 % (45-76); NEUTROPHIL COUNT 3.4 K/uL (1.8-6.4); PLATELET COUNT 255 K/uL (156-360); RBC DIS.WIDTH-CV 13.9 % (11.8-14.6); RBC DIS.WIDTH-SD 45.1 % (39-53); RED BLOOD COUNT 2.92 M/uL (4.00-5.50)
[2016-11-18 06:32] LABS: WHITE BLOOD COUNT 5.1 K/uL (4.1-10.2)
[2016-11-18 06:48] LABS: ALKALINE PHOSPHATASE 89 IU/L (3-129); ANION GAP 9 MEQ/L (2-14); CHLORIDE 107 MEQ/L (99-109); GFR ESTIMATE (CALCULATED) 24 mL/min/; GLUCOSE 128 mg/dL (70-99); SAMPLE HEMOLYSIS CHECK 2; SAMPLE ICTERIC CHECK 0; SAMPLE LIPEMIA CHECK 0; SODIUM 139 MEQ/L (136-147)
[2016-11-18 06:49] LABS: POTASSIUM 5.5 MEQ/L (3.7-5.4); TOTAL BILIRUBIN 0.3 MG/DL (0.0-1.0); UREA NITROGEN (BUN) 86 mg/dL (9-23)
[2016-11-18 07:14] LABS: POINT-OF-CARE METER ID UU14174215; POINT-OF-CARE USER ID AHSSSJB31
[2016-11-18 07:32] LABS: POTASSIUM 5.6 MEQ/L (3.7-5.4)
[2016-11-18 12:19] LABS: POINT-OF-CARE METER ID UU14174215
[2016-11-18 15:58] VITALS: BP 111/58
[2016-11-18 16:48] LABS: POINT-OF-CARE METER ID UU13113720
[2016-11-18 17:54] LABS: POINT-OF-CARE METER ID UU14174215; POINT-OF-CARE USER ID AHSSSJB31
[2016-11-18 21:42] LABS: POINT-OF-CARE METER ID UU14174215; POINT-OF-CARE USER ID 610211320
[2016-11-19 05:29] VITALS: BP 131/65
[2016-11-19 06:15] LABS: BASOPHIL COUNT 0.1 K/uL (0-0.1); EOSINOPHIL (%) 2.1 % (0-5); EOSINOPHIL COUNT 0.2 K/uL (0-0.3); HEMATOCRIT 25.2 % (38.0-50.0); IMMATURE GRANULOCYTE (%) 0.3 % (0.0-0.7); INSTRUMENT ABS NEUTROPHIL CT 7.6 K/uL; LYMPHOCYTE COUNT 0.6 K/uL (1.0-2.8); MCH 27.9 PG (29.0-34.0); MCHC 31.3 G/DL (30.0-36.0); MEAN PLAT.VOLUME 11.2 uM^3 (9.0-12.4); MONOCYTE COUNT 0.6 K/uL (0-0.8); NEUTROPHIL COUNT 7.6 K/uL (1.8-6.4); PLATELET COUNT 242 K/uL (156-360); RBC DIS.WIDTH-CV 13.8 % (11.8-14.6); RBC DIS.WIDTH-SD 44.7 % (39-53); RED BLOOD COUNT 2.83 M/uL (4.00-5.50)
[2016-11-19 06:17] LABS: WHITE BLOOD COUNT 9.2 K/uL (4.1-10.2)
[2016-11-19 06:54] LABS: ANION GAP 12 MEQ/L (2-14); CHLORIDE 107 MEQ/L (99-109); GFR ESTIMATE (CALCULATED) 24 mL/min/; GLUCOSE 161 mg/dL (70-99); MAGNESIUM 1.3 mg/dl (1.3-2.7); SAMPLE HEMOLYSIS CHECK 0; SAMPLE ICTERIC CHECK 0; SAMPLE LIPEMIA CHECK 0; SODIUM 140 MEQ/L (136-147); UREA NITROGEN (BUN) 84 mg/dL (9-23)
[2016-11-19 07:21] LABS: POINT-OF-CARE METER ID UU14174215; POINT-OF-CARE USER ID AHSSSJB31
[2016-11-19 11:51] LABS: POINT-OF-CARE METER ID UU14174215; POINT-OF-CARE USER ID AHSSSJB31
[2016-11-19 15:00] VITALS: BP 124/56
[2016-11-19 16:44] LABS: POINT-OF-CARE METER ID UU13113720
[2016-11-19 21:24] LABS: POINT-OF-CARE METER ID UU13113720
[2016-11-20 05:26] LABS: BASOPHIL COUNT 0.1 K/uL (0-0.1); EOSINOPHIL (%) 1.6 % (0-5); EOSINOPHIL COUNT 0.1 K/uL (0-0.3); HEMATOCRIT 24.7 % (38.0-50.0); IMMATURE GRANULOCYTE (%) 0.4 % (0.0-0.7); INSTRUMENT ABS NEUTROPHIL CT 6.8 K/uL; LYMPHOCYTE COUNT 0.5 K/uL (1.0-2.8); MCH 28.2 PG (29.0-34.0); MCHC 31.6 G/DL (30.0-36.0); MCV 89.2 FL (86-99); MEAN PLAT.VOLUME 10.8 uM^3 (9.0-12.4); MONOCYTE COUNT 0.7 K/uL (0-0.8); NEUTROPHIL (%) 82.8 % (45-76); NEUTROPHIL COUNT 6.8 K/uL (1.8-6.4); PLATELET COUNT 208 K/uL (156-360); RBC DIS.WIDTH-SD 45.2 % (39-53); RED BLOOD COUNT 2.77 M/uL (4.00-5.50); WHITE BLOOD COUNT 8.2 K/uL (4.1-10.2)
[2016-11-20 05:29] VITALS: BP 137/64
[2016-11-20 05:58] LABS: ANION GAP 11 MEQ/L (2-14); CHLORIDE 106 MEQ/L (99-109); GFR ESTIMATE (CALCULATED) 24 mL/min/; GLUCOSE 166 mg/dL (70-99); POTASSIUM 4.6 MEQ/L (3.7-5.4); SAMPLE HEMOLYSIS CHECK 0; SAMPLE ICTERIC CHECK 0; SAMPLE LIPEMIA CHECK 0; SODIUM 138 MEQ/L (136-147); UREA NITROGEN (BUN) 88 mg/dL (9-23)
[2016-11-20 07:02] LABS: POINT-OF-CARE METER ID UU13113720; POINT-OF-CARE USER ID ENVGAF
[2016-11-20 11:37] LABS: POINT-OF-CARE METER ID UU14174215
[2016-11-20 15:14] VITALS: BP 134/66
[2016-11-20 16:18] LABS: POINT-OF-CARE METER ID UU14174215
[2016-11-20 20:05] VITALS: BP 130/66
[2016-11-20 21:12] LABS: POINT-OF-CARE METER ID UU14174215
[2016-11-21 05:45] VITALS: BP 136/68
[2016-11-21 06:53] LABS: ANION GAP 11 MEQ/L (2-14); CHLORIDE 102 MEQ/L (99-109); GFR ESTIMATE (CALCULATED) 19 mL/min/; GLUCOSE 165 mg/dL (70-99); POTASSIUM 4.5 MEQ/L (3.7-5.4); SAMPLE HEMOLYSIS CHECK 0; SAMPLE ICTERIC CHECK 0; SAMPLE LIPEMIA CHECK 0; SODIUM 133 MEQ/L (136-147); UREA NITROGEN (BUN) 97 mg/dL (9-23)
[2016-11-21 07:24] LABS: POINT-OF-CARE METER ID UU14174215; POINT-OF-CARE USER ID AHSSSJB31
[2016-11-21 08:09] VITALS: BP 120/58
[2016-11-21] MEDS ORDERED: DOCUSATE SODIU100 MG PO (09:25)
[2016-11-21] MEDS ORDERED: ASPIR-LOW81 MG PO (09:25)
[2016-11-21] MEDS ORDERED: FERROUS SULFAT325 MG PO (09:25)
[2016-11-21] MEDS ORDERED: LOPRESSOR25 MG PO (09:25)
[2016-11-21] MEDS ORDERED: NOVOLOG PE100 UNITS/ SC (09:25)
[2016-11-21] MEDS ORDERED: ATORVASTATIN CA40 MG PO (09:25)
[2016-11-21] MEDS ORDERED: OYSTER SHELL 51 EACH PO (09:25)
[2016-11-21] MEDS ORDERED: Zeasorb Antifungal T TP (09:25)
[2016-11-21] MEDS ORDERED: THERAGRAN1 TABLET PO (09:25)
[2016-11-21] MEDS ORDERED: CIPRO250 MG PO (09:25)
[2016-11-21] MEDS ORDERED: LEVEMIR100 UNIT/2 SC (09:25)
[2016-11-21 11:04] LABS: ADD MIUA? YES; BILIRUBIN NEGATIVE; BLOOD LARGE; COLOR YELLOW ((YELLOW)); GLUCOSE (STRIP) NEGATIVE; KETONES NEGATIVE; LEUKOCYTES LARGE; NITRITE NEGATIVE; PROTEIN (STRIP) 100; UROBILINOGEN 0.2 MG/DL (0.2-1.0)
[2016-11-21 11:59] LABS: POINT-OF-CARE METER ID UU14174215; POINT-OF-CARE USER ID AHSSSJB31
[2016-11-21 12:40] LABS: WHITE BLOOD CELLS TNTC /HPF (0-5)
[2016-11-21 14:45] VITALS: BP 151/69
[2016-11-21 16:16] LABS: POINT-OF-CARE METER ID UU14174215
[2016-11-22 11:45] LABS: POINT-OF-CARE METER ID UU14149397
== END 2016-11-21 18:46 | DRG 945 ==
LOC: 3WEST 09:54
PROVIDERS: Internal Medicine Nephrology; Physical Medicine & Rehabilitation Pain Medicine; Psychiatry & Neurology Neurology
PROC: F07M0ZZ Range of Motion and Joint Mobility Treatment of Musculoskeletal System - Whole Body (ICD-10-PCS; principal; 2016-11-12)
DX: R53.1 Weakness (principal); E13.10 Other specified diabetes mellitus with ketoacidosis without coma; I21.4 Non-ST elevation (NSTEMI) myocardial infarction; N17.9 Acute kidney failure, unspecified; N39.0 Urinary tract infection, site not specified; D64.9 Anemia, unspecified; N40.1 Benign prostatic hyperplasia with lower urinary tract symptoms; G47.00 Insomnia, unspecified; F31.9 Bipolar disorder, unspecified; R33.9 Retention of urine, unspecified; Z51.89 Encounter for other specified aftercare; Z79.4 Long term (current) use of insulin; Z88.0 Allergy status to penicillin; Z83.3 Family history of diabetes mellitus
CPT/HCPCS: 76770; 80048; 80053; 81003; 82948; 83735; 84999; 85025; 85027; 87077; 87086; 87186; 97110 GO; 97530 GP; J1815; J7030

== ENCOUNTER 2016-11-21 13:12 | Inpatient (IN) | payer OTHER ==
[~2016-11-21] VITALS: Ht 177.8 cm; Wt 81.0 kg
[~2016-11-21 13:12] MED LIST changes: +CIPRO250 MG PO; +DOCUSATE SODIU100 MG PO; +OYSTER SHELL 51 EACH PO; +THERAGRAN1 TABLET PO; +Zeasorb Antifungal T TP
[2016-11-21 19:41] VITALS: BP 126/65
[2016-11-21 23:26] VITALS: BP 137/70
[2016-11-22 03:35] VITALS: BP 117/62
[2016-11-22 05:42] LABS: ANION GAP 13 MEQ/L (2-14); CHLORIDE 104 MEQ/L (99-109); GFR ESTIMATE (CALCULATED) 18 mL/min/; GLUCOSE 158 mg/dL (70-99); POTASSIUM 4.6 MEQ/L (3.7-5.4); SAMPLE HEMOLYSIS CHECK 0; SAMPLE ICTERIC CHECK 0; SAMPLE LIPEMIA CHECK 0; SODIUM 135 MEQ/L (136-147); UREA NITROGEN (BUN) 94 mg/dL (9-23)
[2016-11-22 06:12] LABS: HEMATOCRIT 23.9 % (38.0-50.0); MCH 27.6 PG (29.0-34.0); MCV 89.2 FL (86-99); RBC DIS.WIDTH-CV 14.1 % (11.8-14.6); RBC DIS.WIDTH-SD 45.4 % (39-53); RED BLOOD COUNT 2.68 M/uL (4.00-5.50); WHITE BLOOD COUNT 6.4 K/uL (4.1-10.2)
[2016-11-22 07:19] VITALS: BP 107/59
[2016-11-22 07:25] LABS: POINT-OF-CARE METER ID UU14149397
[2016-11-22 07:26] LABS: MEAN PLAT.VOLUME 11.8 uM^3 (9.0-12.4); PLAT.SUFFICIENCY DECREASED
[2016-11-22 07:43] LABS: PLATELET COUNT 131 K/uL (156-360)
[2016-11-22 11:38] VITALS: BP 128/70
[2016-11-22 13:33] LABS: HEMATOCRIT 24.1 % (38.0-50.0); MCH 27.7 PG (29.0-34.0); MCHC 31.1 G/DL (30.0-36.0); MCV 88.9 FL (86-99); MEAN PLAT.VOLUME 12.2 uM^3 (9.0-12.4); PLATELET COUNT 131 K/uL (156-360); RBC DIS.WIDTH-CV 14.2 % (11.8-14.6); RBC DIS.WIDTH-SD 45.7 % (39-53); RED BLOOD COUNT 2.71 M/uL (4.00-5.50)
[2016-11-22 15:44] VITALS: BP 132/76
[2016-11-22 20:16] VITALS: BP 129/74
[2016-11-22 20:17] LABS: HEMATOCRIT 23.2 % (38.0-50.0); MCH 27.6 PG (29.0-34.0); MCV 88.9 FL (86-99); MEAN PLAT.VOLUME 12.2 uM^3 (9.0-12.4); PLATELET COUNT 123 K/uL (156-360); RBC DIS.WIDTH-CV 14.2 % (11.8-14.6); RBC DIS.WIDTH-SD 46.1 % (39-53); RED BLOOD COUNT 2.61 M/uL (4.00-5.50); WHITE BLOOD COUNT 5.9 K/uL (4.1-10.2)
[2016-11-22 21:33] LABS: POINT-OF-CARE METER ID UU14188577
[2016-11-22 23:29] VITALS: BP 107/59
[2016-11-23] VITALS (9 sets, daily range): BP systolic 103–149; BP diastolic 59–75
[2016-11-23 06:15] LABS: POINT-OF-CARE METER ID UU14188577
[2016-11-23 06:41] LABS: EOSINOPHIL (%) 1.3 % (0-5); EOSINOPHIL COUNT 0.1 K/uL (0-0.3); HEMATOCRIT 23.1 % (38.0-50.0); IMMATURE GRANULOCYTE (%) 0.2 % (0.0-0.7); INSTRUMENT ABS NEUTROPHIL CT 4.5 K/uL; LYMPHOCYTE COUNT 0.4 K/uL (1.0-2.8); MCH 27.6 PG (29.0-34.0); MCHC 31.2 G/DL (30.0-36.0); MCV 88.5 FL (86-99); MEAN PLAT.VOLUME 12.2 uM^3 (9.0-12.4); MONOCYTE (%) 7.8 % (3-12); MONOCYTE COUNT 0.4 K/uL (0-0.8); NEUTROPHIL (%) 83.1 % (45-76); NEUTROPHIL COUNT 4.5 K/uL (1.8-6.4); PLATELET COUNT 132 K/uL (156-360); RBC DIS.WIDTH-CV 14.5 % (11.8-14.6); RBC DIS.WIDTH-SD 46.5 % (39-53); RED BLOOD COUNT 2.61 M/uL (4.00-5.50); WHITE BLOOD COUNT 5.4 K/uL (4.1-10.2)
[2016-11-23 07:05] LABS: ANION GAP 10 MEQ/L (2-14); CHLORIDE 102 MEQ/L (99-109); GFR ESTIMATE (CALCULATED) 19 mL/min/; GLUCOSE 137 mg/dL (70-99); MAGNESIUM 1.2 mg/dl (1.3-2.7); POTASSIUM 4.7 MEQ/L (3.7-5.4); SAMPLE HEMOLYSIS CHECK 0; SAMPLE ICTERIC CHECK 0; SAMPLE LIPEMIA CHECK 0; SODIUM 131 MEQ/L (136-147); UREA NITROGEN (BUN) 93 mg/dL (9-23)
[2016-11-24] VITALS (8 sets, daily range): BP systolic 116–134; BP diastolic 56–76
[2016-11-24 08:59] LABS: HEMATOCRIT 24.4 % (38.0-50.0); MCH 27.7 PG (29.0-34.0); MCHC 31.1 G/DL (30.0-36.0); MCV 89.1 FL (86-99); MEAN PLAT.VOLUME 12.3 uM^3 (9.0-12.4); PLATELET COUNT 123 K/uL (156-360); RBC DIS.WIDTH-CV 14.6 % (11.8-14.6); RBC DIS.WIDTH-SD 47.4 % (39-53); RED BLOOD COUNT 2.74 M/uL (4.00-5.50); WHITE BLOOD COUNT 3.8 K/uL (4.1-10.2)
[2016-11-24 09:22] LABS: ANION GAP 11 MEQ/L (2-14); CHLORIDE 103 MEQ/L (99-109); POTASSIUM 4.6 MEQ/L (3.7-5.4); SAMPLE HEMOLYSIS CHECK 0; SAMPLE ICTERIC CHECK 0; SAMPLE LIPEMIA CHECK 0; SODIUM 132 MEQ/L (136-147)
[2016-11-24 09:45] LABS: GFR ESTIMATE (CALCULATED) 19 mL/min/; UREA NITROGEN (BUN) 89 mg/dL (9-23)
[2016-11-24 09:48] LABS: GLUCOSE 252 mg/dL (70-99)
[2016-11-24 15:54] LABS: POINT-OF-CARE USER ID 609231305
[2016-11-24 17:15] LABS: HEMATOCRIT 28.4 % (38.0-50.0); MCHC 31.3 G/DL (30.0-36.0); MCV 89.3 FL (86-99); PLATELET COUNT 131 K/uL (156-360); RBC DIS.WIDTH-CV 14.7 % (11.8-14.6); RBC DIS.WIDTH-SD 48.3 % (39-53); RED BLOOD COUNT 3.18 M/uL (4.00-5.50); WHITE BLOOD COUNT 4.9 K/uL (4.1-10.2)
[2016-11-24 19:15] LABS: INTERNAL CONTROL VALID? YES
[2016-11-25] VITALS: BP 148/83
[2016-11-25 05:57] LABS: EOSINOPHIL (%) 6.2 % (0-5); EOSINOPHIL COUNT 0.3 K/uL (0-0.3); HEMATOCRIT 26.9 % (38.0-50.0); IMMATURE GRANULOCYTE (%) 0.4 % (0.0-0.7); INSTRUMENT ABS NEUTROPHIL CT 3.1 K/uL; LYMPHOCYTE COUNT 0.4 K/uL (1.0-2.8); MCH 27.6 PG (29.0-34.0); MCHC 31.6 G/DL (30.0-36.0); MCV 87.3 FL (86-99); MEAN PLAT.VOLUME 12.4 uM^3 (9.0-12.4); MONOCYTE (%) 14.1 % (3-12); MONOCYTE COUNT 0.6 K/uL (0-0.8); NEUTROPHIL (%) 69.1 % (45-76); NEUTROPHIL COUNT 3.1 K/uL (1.8-6.4); PLATELET COUNT 134 K/uL (156-360); RBC DIS.WIDTH-CV 14.9 % (11.8-14.6); RBC DIS.WIDTH-SD 47.4 % (39-53); RED BLOOD COUNT 3.08 M/uL (4.00-5.50); WHITE BLOOD COUNT 4.5 K/uL (4.1-10.2)
[2016-11-25 06:33] LABS: ANION GAP 11 MEQ/L (2-14); CHLORIDE 106 MEQ/L (99-109); GFR ESTIMATE (CALCULATED) 21 mL/min/; GLUCOSE 239 mg/dL (70-99); POTASSIUM 4.7 MEQ/L (3.7-5.4); SAMPLE HEMOLYSIS CHECK 0; SAMPLE ICTERIC CHECK 0; SAMPLE LIPEMIA CHECK 0; SODIUM 135 MEQ/L (136-147); UREA NITROGEN (BUN) 86 mg/dL (9-23)
[2016-11-25 08:14] VITALS: BP 137/76
[2016-11-25 11:44] LABS: POINT-OF-CARE METER ID UU14188577
[2016-11-25 15:36] VITALS: BP 132/64
[2016-11-25 22:50] LABS: POINT-OF-CARE METER ID UU14188577
[2016-11-26 06:40] LABS: ANION GAP 9 MEQ/L (2-14); CHLORIDE 107 MEQ/L (99-109); GFR ESTIMATE (CALCULATED) 22 mL/min/; GLUCOSE 216 mg/dL (70-99); SAMPLE HEMOLYSIS CHECK 0; SAMPLE ICTERIC CHECK 0; SAMPLE LIPEMIA CHECK 0; SODIUM 136 MEQ/L (136-147); UREA NITROGEN (BUN) 78 mg/dL (9-23)
[2016-11-26 06:42] LABS: MAGNESIUM 1.6 mg/dl (1.3-2.7)
[2016-11-26 08:27] VITALS: BP 153/75
[2016-11-26 11:52] LABS: POINT-OF-CARE METER ID UU14149397
[2016-11-26 12:04] VITALS: BP 156/73
== END 2016-11-26 14:35 | DRG 699 ==
LOC: 3WEST 13:12 → 3EAST 18:48
PROVIDERS: Hospitalist; Internal Medicine Nephrology; Student in an Organized Health Care Education/Training Program
PROC: 0T9B70Z Drainage of Bladder with Drainage Device, Via Natural or Artificial Opening (ICD-10-PCS; principal; 2016-11-21)
PROC: 30233N1 Transfusion of Nonautologous Red Blood Cells into Peripheral Vein, Percutaneous Approach (ICD-10-PCS; 2016-11-23)
DX: T83.021A Displacement of indwelling urethral catheter, initial encounter (principal); Y84.6 Urinary catheterization as the cause of abnormal reaction of the patient, or of later complication, without mention of misadventure at the time of the procedure; N17.9 Acute kidney failure, unspecified; N13.39 Other hydronephrosis; N13.8 Other obstructive and reflux uropathy; N39.0 Urinary tract infection, site not specified; B96.89 Other specified bacterial agents as the cause of diseases classified elsewhere; N40.1 Benign prostatic hyperplasia with lower urinary tract symptoms; N31.2 Flaccid neuropathic bladder, not elsewhere classified; R33.9 Retention of urine, unspecified; R31.9 Hematuria, unspecified; I13.0 Hypertensive heart and chronic kidney disease with heart failure and stage 1 through stage 4 chronic kidney disease, or unspecified chronic kidney disease; I50.9 Heart failure, unspecified; I48.0 Paroxysmal atrial fibrillation; E11.22 Type 2 diabetes mellitus with diabetic chronic kidney disease; N18.3 Chronic kidney disease, stage 3 (moderate); F31.9 Bipolar disorder, unspecified; D64.9 Anemia, unspecified; E11.40 Type 2 diabetes mellitus with diabetic neuropathy, unspecified; Q54.0 Hypospadias, balanic; I25.2 Old myocardial infarction; Z88.0 Allergy status to penicillin
CPT/HCPCS: 80048; 80069; 81003; 82272; 82948; 83735; 84100; 85025; 85027; 86850; 86900; 86901; 86920; 97530 GO; J0696; J1644; J1650; J1815; J3475; J7030; J7050; P9016

== ENCOUNTER 2017-01-17 14:21 | Observation (INO) | payer OTHER ==
[~2017-01-17] VITALS: Ht 177.8 cm; Wt 83.5 kg
[2017-01-17 14:50] LABS: POINT-OF-CARE METER ID UU13113800; POINT-OF-CARE USER ID NUTJLF39
[2017-01-17 15:44] LABS: HEMATOCRIT 34.6 % (38.0-50.0); MCHC 32.1 G/DL (30.0-36.0); MCV 87.2 FL (86-99); MEAN PLAT.VOLUME 9.9 uM^3 (9.0-12.4); PLATELET COUNT 182 K/uL (156-360); RBC DIS.WIDTH-CV 15.5 % (11.8-14.6); RBC DIS.WIDTH-SD 48.8 % (39-53); RED BLOOD COUNT 3.97 M/uL (4.00-5.50); WHITE BLOOD COUNT 6.1 K/uL (4.1-10.2)
[2017-01-17 15:57] LABS: CHLORIDE 114 mEq/L (99-109); POTASSIUM 4.3 mEq/L (3.7-5.4); SODIUM 143 mEq/L (136-147)
[2017-01-17 15:59] LABS: GLUCOSE 96 mg/dL (70-99)
[2017-01-17 16:00] LABS: ANION GAP 13 MEQ/L (2-14)
[2017-01-17 16:03] LABS: GFR ESTIMATE (CALCULATED) 28 mL/min/; TROP-I INTERPRETATION NEGATIVE; TROPONIN-I 0.02 ng/mL (0.0-0.30)
[2017-01-17 16:04] LABS: UREA NITROGEN (BUN) 44 mg/dL (9-23)
[2017-01-17 16:28] LABS: POINT-OF-CARE METER ID UU13113702
[2017-01-17] MEDS ORDERED: METOPROLOL TART25 MG PO (17:11)
[2017-01-17] MEDS ORDERED: GABAPENTIN100 MG PO (17:12)
[2017-01-17] MEDS ORDERED: NOVOLOG 10100 UNITS/ SC ×2 (17:13)
[2017-01-17] MEDS ORDERED: LEVEMIR FL100 UNIT/1 SC (17:13)
[2017-01-17] MEDS ORDERED: ONE-A-DAY ESSE1 EAC1 PO (17:14)
[2017-01-17] MEDS ORDERED: FOLIC ACID1 MG PO (17:14)
[2017-01-17] MEDS ORDERED: TYLENOL EXTRA500 MG PO (17:15)
[2017-01-17] MEDS ORDERED: FINASTERIDE5 MG PO (17:15)
[2017-01-17] MEDS ORDERED: LO-DOSE ASPIRIN81 M2 PO (17:15)
[2017-01-17] MEDS ORDERED: TAMSULOSIN HCL0.4 MG PO (17:15)
[2017-01-17 19:38] LABS: POINT-OF-CARE METER ID UU13113702
[2017-01-17 20:29] VITALS: BP 128/60
[2017-01-17 20:50] LABS: POINT-OF-CARE METER ID UU13113700
[2017-01-17 23:14] VITALS: BP 134/65
[2017-01-17 23:15] VITALS: BP 93/51; BP 95/52
[2017-01-18 00:30] VITALS: BP 136/70
[2017-01-18 04:55] VITALS: BP 142/69
[2017-01-18 06:33] LABS: BASOPHIL COUNT 0.1 K/uL (0-0.1); EOSINOPHIL (%) 6.5 % (0-5); EOSINOPHIL COUNT 0.3 K/uL (0-0.3); IMMATURE GRANULOCYTE (%) 0.4 % (0.0-0.7); INSTRUMENT ABS NEUTROPHIL CT 2.9 K/uL; LYMPHOCYTE COUNT 0.9 K/uL (1.0-2.8); MCH 28.4 PG (29.0-34.0); MCHC 32.3 G/DL (30.0-36.0); MEAN PLAT.VOLUME 10.6 uM^3 (9.0-12.4); MONOCYTE (%) 9.3 % (3-12); MONOCYTE COUNT 0.4 K/uL (0-0.8); NEUTROPHIL (%) 63.3 % (45-76); NEUTROPHIL COUNT 2.9 K/uL (1.8-6.4); PLATELET COUNT 172 K/uL (156-360); RBC DIS.WIDTH-CV 15.7 % (11.8-14.6); RBC DIS.WIDTH-SD 49.7 % (39-53); RED BLOOD COUNT 3.41 M/uL (4.00-5.50); WHITE BLOOD COUNT 4.6 K/uL (4.1-10.2)
[2017-01-18 07:30] VITALS: BP 164/79
[2017-01-18 09:00] LABS: ANION GAP 9 MEQ/L (2-14); CHLORIDE 111 MEQ/L (99-109); GFR ESTIMATE (CALCULATED) 25 mL/min/; POTASSIUM 4.7 MEQ/L (3.7-5.4); SAMPLE HEMOLYSIS CHECK 0; SAMPLE ICTERIC CHECK 0; SAMPLE LIPEMIA CHECK 0; SODIUM 141 MEQ/L (136-147); UREA NITROGEN (BUN) 44 mg/dL (9-23)
[2017-01-18 09:01] LABS: GLUCOSE 223 mg/dL (70-99)
[2017-01-18] MEDS ORDERED: LOPRESSOR25 MG PO (10:32)
[2017-01-18 11:45] VITALS: BP 156/71
[2017-01-18 12:50] LABS: POINT-OF-CARE METER ID UU13113700
[2017-01-21 10:56] LABS: POINT-OF-CARE METER ID UU13113702
== END 2017-01-18 13:43 | disposition home or self-care (01) ==
LOC: EME 14:21 → EDOF 18:20 → 5WEST 20:06
PROVIDERS: Family Medicine; Physician Assistant
DX: R55 Syncope and collapse (principal); E11.649 Type 2 diabetes mellitus with hypoglycemia without coma; I95.9 Hypotension, unspecified; E87.2 Acidosis; R94.31 Abnormal electrocardiogram [ECG] [EKG]; I12.9 Hypertensive chronic kidney disease with stage 1 through stage 4 chronic kidney disease, or unspecified chronic kidney disease; N18.3 Chronic kidney disease, stage 3 (moderate); I25.2 Old myocardial infarction; F31.9 Bipolar disorder, unspecified; Z79.4 Long term (current) use of insulin
CPT/HCPCS: 71020; 80048; 82948; 84484; 85025; 85027; 93005; 99281; 99285; G0378; J1644; J1815; J7030